=== PATIENT | female | born 1980 | race Caucasian/White ===

== ENCOUNTER 2019-10-17 16:30 | Emergency (ER) | payer SELFPAY ==
[2019-10-17] MEDS ORDERED: HYDROmorphone 1 MG/ML Syringe IM ONE (17:28)
--- NOTE | 2019-10-17 17:36 | EDM.PDOC ---
ED HPI GENERAL MEDICAL PROBLEM - General Chief Complaint: Genitourinary Problem Stated Complaint: VAGINAL PAIN Time Seen by Provider: 10/17/19 17:19 Source of Information: Reports: Patient, RN Notes Reviewed History Limitations: Reports: No Limitations - History of Present Illness INITIAL COMMENTS - FREE TEXT/NARRATIVE: Patient is a 39-year-old female who presents to the ED for the evaluation of a infected Bartholin cyst. Patient notes she has a history of this her last infected Bartholin cyst was 5 years ago. She is notes that this was on the left side however. She states that she started having some pain Wednesday morning, and it is worsened since then. She did have a scheduled appointment with Dr. Stanley tomorrow, but states that the pain is so severe where she cannot even sit much at all without intense pain, so she came to the ER for management. Patient denies any other sick-like symptoms, fever/chills, shortness of breath chest chest pain. She has been taking 2 tabs of Tylenol every 6-8 hours and this does not seem to be helping the pain much at all. Patient further denies any urinary issues, or any vaginal discharge. She does note a history of me dullary kidney disease, but states everything is been going well with that. Vaginal Pain Score (Numeric/FACES): 10 - Related Data Allergies Allergy/AdvReac Type Severity Reaction Status Date / Time Iodinated Contrast Media Allergy Hives Verified 09/12/13 12:21 [Iodinated Contrast Media - IV Dye] latex Allergy Itching Verified 07/26/13 19:24 Home Meds: Home Meds LORazepam [Ativan] 0.5 mg PO QID PRN 09/12/13 [History] Nitrofurantoin Monohyd/M-Cryst [Macrobid 100 mg Capsule] 100 mg PO BID #14 capsule 01/20/15 [Rx] Acetaminophen/oxyCODONE [Percocet 325-5 MG] 1 each PO Q6H PRN #12 tab 10/17/19 [Rx] Doxycycline [Vibramycin] 100 mg PO BID #14 tab 10/17/19 [Rx] Past Medical History Genitourinary History: Reports: Other (See Below) Other Genitourinary History: medullary sponge kidney Social & Family History - Family History Family Medical History: Noncontributory - Tobacco Use Smoking Status *Q: Current Every Day Smoker Years of Tobacco use: 24 Packs/Tins Daily: 1 ED ROS GENERAL - Review of Systems Review Of Systems: Comprehensive ROS is negative, except as noted in HPI. ED EXAM, RENAL/ - Physical Exam Exam: See Below Exam Limited By: No Limitations General Appearance: Alert, WD/WN, No Apparent Distress Respiratory/Chest: No Respiratory Distress, Lungs Clear, Normal Breath Sounds, No Accessory Muscle Use, Chest Non-Tender Cardiovascular: Normal Peripheral Pulses, Regular Rate, Rhythm, No Murmur GI/Abdominal: Normal Bowel Sounds, Soft, Non-Tender, No Distention, No Mass (Female) Exam: Vaginal Discharge (physiologic looking discharge coming from vaginal opening. Not malodorous), Vaginal Lesions (on right labia, roughly grape sized, and very tender to the touch.) Neurological: Alert, Oriented, Normal Cognition, No Motor/Sensory Deficits Psychiatric: Normal Affect, Normal Mood Skin Exam: Warm, Dry, Intact, Normal Color, No Rash ED PROCEDURES - Additional/Other Procedure(s) Procedure(s) (Free Text): Procedure performed by Dr. Chand and assisted by myself. Incision and drainage of right Bartholin cyst, this was a little larger than grape size on palpation. Area was anesthetized with 2 mils 1% lidocaine, the area was cleaned with ChloraPrep swab, and then incised and drained with 11 blade, patient had a small amount of pain with procedure, but tolerated it fairly well. Wound cultures were taken. There was a moderate amount of purulent fluid expressed from the wound. Gauze packing was placed to allow this to drain. Patient will be directed to follow-up with Dr. Stanley for further exam. Course - Vital Signs Last Recorded V/S: Last Vital Signs Temp 98.6 F 10/17/19 17:02 Pulse 84 10/17/19 17:02 Resp 16 10/17/19 17:02 BP 101/63 10/17/19 17:02 Pulse Ox 97 10/17/19 17:02 - Orders/Labs/Meds Orders: Active Orders 24 hr Category Date Time Status CULTURE ANAEROBIC + SMEAR [RM] Stat Lab 10/17/19 18:58 Ordered Meds: Medications Discontinued Medications Generic Name Dose Route Start Last Admin Trade Name Freq PRN Reason Stop Dose Admin Hydromorphone HCl 1 mg 10/17/19 17:28 10/17/19 17:50 Dilaudid IM 10/17/19 17:29 1 mg ONETIME ONE Administration Lidocaine HCl 10 ml 10/17/19 18:04 Xylocaine 1% INJECT 10/17/19 18:05 ONETIME ONE - Re-Assessments/Exams Free Text/Narrative Re-Assessment/Exam: 10/17/19 17:37 Patient presents to the ED for her vaginal lesion, it does appear to be an infected Bartholin cyst. I have asked Dr. Chand to help assist me with incision and drainage for this. We will likely send her home with outpatient antibiotics for outpatient management as well. Departure - Departure Time of Disposition: 19:03 Disposition: Home, Self-Care 01 Condition: Good Clinical Impression: Bartholin's gland abscess - Discharge Information *PRESCRIPTION DRUG MONITORING PROGRAM REVIEWED*: Yes *COPY OF PRESCRIPTION DRUG MONITORING REPORT IN PATIENT JORGE: No Prescriptions: Acetaminophen/oxyCODONE [Percocet 325-5 MG] 1 each PO Q6H PRN #12 tab PRN Reason: Pain Doxycycline [Vibramycin] 100 mg PO BID #14 tab Instructions: Bartholin's Cyst, [id number] Referrals: PCP,None [Primary Care Provider] - Forms: ED Department Discharge Additional Instructions: You were evaluated in the ED today for your infected Bartholin cyst. This area was incised and drained, there is a small amount of gauze packing left within the wound to allow it to drain, so please be careful when you are using the bathroom, as to not dislodge the gauze as much as possible. This should stay in a day or 2, is likely that Dr. Stanley can take this out at your appointment.. Wound cultures of this area were taken, you will be called and made notified if you should need a change in antibiotics or otherwise. The antibiotic you have been prescribed, does cover a wide spectrum of bacteria, so it should be appropriate for anything that is growing in this area. You were given a prescription for a strong pain medication, oxycodone/acetaminophen 5/325, please take 1 tab every 6 hours as needed for pain not relieved by Tylenol or ibuprofen alone. Please note this medication does contain Tylenol in it, so do not take more than 4000 mg in a 24-hour time span. These medications can be addictive, so please take as few as possible to achieve adequate pain control. These meds can also be quite constipating, recommend that you increase your oral fluid intake and take a stool softener like MiraLAX while taking these medications. Do not drive while taking this medication. You may also take 600 mg ibuprofen every 6 hours as needed for further inflammation relief. Do not exceed 3200 mg ibuprofen in a 24-hour time span. Please keep your appointment with Dr. Stanley for , for reevaluation of the area to make sure everything is healing as expected. Please return to the ER at any time if your symptoms change or worsen. Sepsis Event Note (ED) - Evaluation Sepsis Screening Result: No Definite Risk - Focused Exam Vital Signs: Vital Signs Temp Pulse Resp BP Pulse Ox 10/17/19 17:02 98.6 F 84 16 101/63 97 - My Orders Last 24 Hours: My Active Orders 10/17/19 18:58 CULTURE ANAEROBIC + SMEAR [RM] Stat - Assessment/Plan Last 24 Hours: My Active Orders 10/17/19 18:58 CULTURE ANAEROBIC + SMEAR [RM] Stat
[2019-10-17] MEDS ORDERED: Lidocaine 1% 10 ML MDV INJECT ONE (18:04)
[2019-10-17 19:51] VITALS: BP 99/73; PULSE 78
== END 2019-10-17 19:52 | disposition home or self-care (01) ==
LOC: JD.ED 16:30
DX: N75.1 Abscess of Bartholin's gland (principal); F17.210 Nicotine dependence, cigarettes, uncomplicated; Z91.041 Radiographic dye allergy status; Z91.040 Latex allergy status
CPT/HCPCS: 56420; 87075; 87205; 96372; 99283; J1170; J2001; 87076

== ENCOUNTER 2020-12-05 08:17 | Emergency (ER) | payer SELFPAY ==
[2020-12-05] MEDS ORDERED: HYDROmorphone 0.5 MG/0.5 ML Syringe IVPUSH ONE ×2 (09:34→12:59)
[2020-12-05] MEDS ORDERED: Ondansetron 4 MG/2 ML SDV IVPUSH ONE (09:34)
--- NOTE | 2020-12-05 09:37 | EDM.PDOC ---
ED HPI GENERAL MEDICAL PROBLEM - General Chief Complaint: Abdominal Pain Stated Complaint: ADOMINAL PAIN, DIZZY,POSS HERNIA Time Seen by Provider: 12/05/20 09:21 Source of Information: Reports: Patient History Limitations: Reports: No Limitations - History of Present Illness INITIAL COMMENTS - FREE TEXT/NARRATIVE: 40-year-old female presents to the ED for evaluation of diffuse right low back pain. She states it seems to start in her right flank area and radiate down to her right back and along the iliac crest to her right groin. She has a history of kidney stones and has known polycystic kidney disease particular affecting the right kidney. She has not had a kidney stone passage for 5 years or more. Pain does radiate down the posterior buttock and lateral posterior lateral aspect of her right leg but not below the knee. She appreciates that certain positions such as getting out of vehicle are painful. No known recent injuries or falls. She has mild urinary tract symptoms of dysuria but has not appreciated blood in her urine. Second complaint is pain and swelling intermittently in the midline of her upper abdomen.--First noted about 2 months ago. The hernia will sometimes protrude after eating. She is taken a picture with her phone which shows an obvious ventral hernia approximately 50% piece in size. 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 At present the hernia is not causing her any difficulty or pain. She denies fever or chills. Back pain is constant has been interfering with her sleep and ability to work out. Back pain has been present for the better part of 2 weeks. Onset: Unknown/Unsure (Low back pain persisting for 2 weeks and seems to be getting worse.) Duration: Week(s):, Constant, Getting Worse Location: Reports: Abdomen (And line upper abdominal pain which comes and goes and with associated bulge indicating ventral hernia.), Back (Diffuse right low back plain flank pain) Quality: Reports: Ache, Sharp (Pain in her lower back is occasional sharp and stabbing but different than kidney stone pain), Stabbing Severity: Moderate (8 out of 10) Improves with: Reports: Rest Worsens with: Reports: Movement (Patient with movement like getting out of the vehicle or getting up out of bed. Seems to be worse in the mornings and seems to slowly get better as the day goes on) Context: Reports: Other. Denies: Activity, Exercise, Lifting, Sick Contact, Trauma Associated Symptoms: Reports: Other (Does have some mild associated nasal congestion.). 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, NSAIDS (She takes NSAIDs sparingly due to known polycystic kidney disease.) Right Leg Pain Score (Numeric/FACES): 8 - Related Data Allergies Allergy/AdvReac Type Severity Reaction Status Date / Time Iodinated Contrast Media Allergy Hives Verified 12/05/20 09:10 [Iodinated Contrast Media - IV Dye] latex Allergy Itching Verified 12/05/20 09:10 Home Meds: Home Meds LORazepam [Ativan] 0.5 mg PO QID PRN 09/12/13 [History] Nitrofurantoin Monohyd/M-Cryst [Macrobid 100 mg Capsule] 100 mg PO BID #14 capsule 01/20/15 [Rx] Acetaminophen/oxyCODONE [Percocet 325-5 MG] 1 each PO Q6H PRN #12 tab 10/17/19 [Rx] Doxycycline [Vibramycin] 100 mg PO BID #14 tab 10/17/19 [Rx] Diclofenac Sodium [Voltaren] 50 mg PO TID #24 tab.ec 12/05/20 [Rx] Nitrofurantoin Monohyd/M-Cryst [Macrobid 100 mg Capsule] 100 mg PO BID #14 capsule 12/05/20 [Rx] oxyCODONE HCl/Acetaminophen [Percocet 5-325 mg Tablet] 1 each PO Q6H PRN #12 tablet 12/05/20 [Rx] predniSONE [Prednisone] 20 mg PO ASDIRECTED #18 tablet 12/05/20 [Rx] Past Medical History - Past Health History Medical/Surgical History: Denies Medical/Surgical History Genitourinary History: Reports: Other (See Below) Other Genitourinary History: medullary sponge kidney--is supposed to be followed by Dr. 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 : 5 Para: 5 - Infectious Disease History Infectious Disease History: Reports: Chicken Pox Social & Family History - Family History Family Medical History: No Pertinent Family History - Tobacco Use Tobacco Use Status *Q: Current Every Day Tobacco User Years of Tobacco use: 25 Packs/Tins Daily: 1 - Caffeine Use Caffeine Use: Reports: Coffee - Recreational Drug Use Recreational Drug Use: No - Living Situation & Occupation Living situation: Reports: Occupation: Employed ED ROS GENERAL - Review of Systems Review Of Systems: See Below Constitutional: Reports: Malaise, Fatigue (She believes due to lack of sleep.). Denies: Fever, Chills HEENT: Reports: Rhinitis, Sinus Problem Respiratory: Reports: No Symptoms Cardiovascular: Reports: No Symptoms Endocrine: Reports: Fatigue GI/Abdominal: Reports: Abdominal Pain (See history of present illness. Appears to have developed a ventral hernia over the last 2 months), Decreased Appetite. Denies: Distension, Flatus, Hematemesis, Hematochezia, Melena, Vomiting, Other : Reports: Frequency. Denies: Dysuria, Hematuria, Urgency Musculoskeletal: Reports: Back Pain (Right flank pain right low back pain rating along the crest to her groin at times. Otherwise it radiates down the posterior lateral aspect of her right thigh and leg to the knee but not below the knee.) Skin: Reports: No Symptoms Neurological: Reports: Paresthesia (Paresthesias posterior lateral aspect of right leg involving the buttock down to the knee posterior laterally without below), Difficulty Walking. Denies: Confusion, Dizziness, Headache Psychiatric: Reports: No Symptoms (Due to back pain in the morning) Hematologic/Lymphatic: Reports: No Symptoms Immunologic: Reports: No Symptoms ED EXAM, GI/ABD - Physical Exam Exam: See Below Exam Limited By: No Limitations General Appearance: Alert, WD/WN, Anxious, Mild Distress, Other (Temperature is 36.3 degrees. Heart rate 94 and sinus. Respiratory is 18 with O2 sats 100% room air. BP 123/81) Eyes: Bilateral: Normal Appearance ( no sclericterus or blepharal pallor.) Throat/Mouth: Normal Inspection, Normal Lips, Normal Oropharynx Head: Atraumatic, Normocephalic Neck: Normal Inspection, Supple, Non-Tender, Full Range of Motion. No: Carotid Bruit, Lymphadenopathy (L), Lymphadenopathy (R) Respiratory/Chest: No Respiratory Distress, Lungs Clear, Normal Breath Sounds, No Accessory Muscle Use Cardiovascular: Normal Peripheral Pulses, Regular Rate, Rhythm, No Edema, No Gallop, No Murmur, No Rub GI/Abdominal Exam: Normal Bowel Sounds, Soft, No Organomegaly, Hernia (Patient does have a ventral hernia 3 cm below the xiphisternum slightly left of the midline and is approximately $0.50 size . the area is mildly tender to palpation. It is only visible when she is standing. It is easily reducible), Other (Surgical scars around the umbilicus from laparoscopic cholecystectomy and tubal ligation) Back Exam: CVA Tenderness (L), CVA Tenderness (R) (Moderate), Decreased Range of Motion (Moderate), Muscle Spasm (Paraspinal muscle spasm over lumbar 3 to lumbar 5 right side.), Paraspinal Tenderness (Marked tenderness over the L3-4 and L4-L5 and L5-S1 facet joints right side), Other (Moderate tenderness superior two thirds of the right sacroiliac joint as compared to the left.) Extremities: Normal Inspection, Normal Range of Motion, Non-Tender, No Pedal Edema Neurological: Alert, Oriented, CN II-XII Intact, Normal Cognition Psychiatric: Normal Affect, Normal Mood Skin Exam: Warm, Dry, Intact, Normal Color, No Rash Course - Vital Signs Last Recorded V/S: Last Vital Signs Temp 36.3 C 12/05/20 09:06 Pulse 72 12/05/20 10:20 Resp 18 12/05/20 10:20 BP 106/73 12/05/20 10:20 Pulse Ox 100 12/05/20 10:20 - Orders/Labs/Meds Labs: Laboratory Tests 12/05/20 12/05/20 12/05/20 Range/Units 09:34 09:45 09:54 WBC 7.49 (3.98-10.04) K/mm3 RBC 4.66 (3.98-5.22) M/mm3 Hgb 14.3 (11.2-15.7) gm/dl Hct 43.5 (34.1-44.9) % MCV 93.3 D (79.4-94.8) fl MCH 30.7 (25.6-32.2) pg MCHC 32.9 (32.2-35.5) g/dl RDW Std Deviation 43.4 (36.4-46.3) fL Plt Count 299 (182-369) K/mm3 MPV 10.0 (9.4-12.3) fl Neut % (Auto) 55.6 (34.0-71.1) % Lymph % (Auto) 31.9 (19.3-51.7) % [place] % (Auto) 9.3 (4.7-12.5) % Eos % (Auto) 2.1 (0.7-5.8) Baso % (Auto) 0.8 (0.1-1.2) % Neut # (Auto) 4.16 (1.56-6.13) K/mm3 Lymph # (Auto) 2.39 (1.18-3.74) K/mm3 [place] # (Auto) 0.70 H (0.24-0.36) K/mm3 Eos # (Auto) 0.16 (0.04-0.36) K/mm3 Baso # (Auto) 0.06 (0.01-0.08) K/mm3 Sodium 141 (136-145) mEq/L Potassium 3.8 (3.5-5.1) mEq/L Chloride 105 (98-107) mEq/L Carbon Dioxide 28 (21-32) mEq/L Anion Gap 11.8 (5-15) BUN 9 (7-18) mg/dL Creatinine 0.6 (0.55-1.02) mg/dL Est Cr Clr Drug Dosing 107.27 mL/min Estimated GFR (MDRD) > 60 (>60) mL/min BUN/Creatinine Ratio 15.0 (14-18) Glucose 88 (70-99) mg/dL Calcium 8.4 L (8.5-10.1) mg/dL Total Bilirubin 0.4 (0.2-1.0) mg/dL AST 12 L (15-37) U/L ALT 21 (14-59) U/L Alkaline Phosphatase 58 (46-116) U/L C-Reactive Protein <0.2 (<1.0) mg/dL Total Protein 6.8 (6.4-8.2) g/dl Albumin 3.6 (3.4-5.0) g/dl Globulin 3.2 gm/dL Albumin/Globulin Ratio 1.1 (1-2) Lipase 94 (73-393) U/L Urine Color Yellow (Yellow) Urine Appearance Clear (Clear) Urine pH 7.0 (5.0-8.0) Ur Specific [place] 1.015 (1.005-1.030) Urine Protein Negative (Negative) Urine Glucose (UA) Negative (Negative) Urine Ketones Negative (Negative) Urine Occult Blood Negative (Negative) Urine Nitrite Negative (Negative) Urine Bilirubin Negative (Negative) Urine Urobilinogen 0.2 (0.2-1.0) Ur Leukocyte Esterase Trace H (Negative) Urine RBC 0-5 (0-5) /hpf Urine WBC 0-5 (0-5) /hpf Ur Epithelial Cells 0-5 (0-5) /hpf Urine Bacteria Moderate H (FEW) /hpf Urine Mucus Not seen (FEW) /hpf Meds: Medications Discontinued Medications Generic Name Dose Route Start Last Admin Trade Name Berny PRN Reason Stop Dose Admin Hydromorphone HCl 0.5 mg 12/05/20 09:34 12/05/20 10:37 Hydromorphone 0.5 Mg/0.5 Ml Syringe IVPUSH 12/05/20 09:35 0.5 mg ONETIME ONE Administration Hydromorphone HCl 0.5 mg 12/05/20 12:59 12/05/20 13:23 Hydromorphone 0.5 Mg/0.5 Ml Syringe IVPUSH 12/05/20 13:00 0.5 mg ONETIME ONE Administration Dextrose/Sodium Chloride 1,000 mls @ 250 mls/hr 12/05/20 09:45 12/05/20 10:39 Dextrose 5%-Normal Saline IV 250 mls/hr ASDIRECTED LOLA Administration Methylprednisolone Sodium Succinate 125 mg 12/05/20 13:00 12/05/20 13:23 Methylprednisolone Sodium Succinate 125 Mg/2 Ml Sdv IVPUSH 12/05/20 13:01 125 mg ONETIME ONE Administration Ondansetron HCl 4 mg 12/05/20 09:34 12/05/20 10:36 Ondansetron 4 Mg/2 Ml Sdv IVPUSH 12/05/20 09:35 4 mg ONETIME ONE Administration - Radiology Interpretation Free Text/Narrative:: 40-year-old female presents to the ED complaining of 2 problems. She is appreciated a bulge which is somewhat tender in the midline of her upper abdomen on an intermittent basis over the last 2 months. She has taken a picture of it with her cell phone and clinically she has a ventral hernia but the size of a $0.50 piece. This is only evident when she is standing. It was not evident upon lying down. Of note she has had 5 pregnancies. This would have likely c aused some degree of diastases recti. Major problem today is diffuse right flank and low back pain rating down her posterior lateral right thigh and along the iliac crest to her right groin. She has a history of probably cystic kidney disease or medullary sponge kidney and has had kidney stones in the past but this pain feels different. It is also been more constant made worse by certain movements for the last 2 weeks. No known falls or injuries. She is however working out at the gym as of late doing much more exercise than she has in the past. She has tenderness over palpation of both kidneys or costovertebral angles. She also has diffuse tenderness over L3-L5 and her right sacroiliac joint on initial exam. Plan she will be given Zofran 4 mg IV with Dilaudid 0.5 mg IV for acute pain relief. Plan will be to CT her abdomen and pelvis without contrast so that I can see both kidneys and look for any occult cause of pelvic pain on the right side. - Re-Assessments/Exams Free Text/Narrative Re-Assessment/Exam: 12/05/20 11:04 CT of the abdomen and pelvis has been completed without any contrast since the patient has an allergy to IV contrast. Small calcification is seen inferiorly within the left kidney which appears to be parenchymal and measures 1.5 to 2 mm. No other abnormal calcifications are seen within the kidneys. No ureteral dilatation is seen. No abnormal calcifications are seen along the course of the ureters. No bladder calculi are identified. Visualized lung bases show nothing acute. Liver contains no focal parenchymal abnormality. Spleen size is normal. Adrenal glands show no nodules. Pancreas shows no discrete abnormality. Gallbladder contains no calcified gallstones. Abdominal aorta shows no aneurysm. No retroperitoneal adenopathy or mesenteric abnormalities are seen. Surgical clips are seen within the right lower abdomen. No pelvic mass or adenopathy is appreciated. Appendix is not visualized. No free fluid or inflammatory changes are appreciated. Bone window settings were obtained which showed degenerative change within the lower apophyseal joints particular on the right side at the L5-S1 level. No acute osseous abnormalities are otherwise appreciated. 12/05/20 11:07 White count is normal at 7.49. The auto differential shows 55.6% neutrophils. Hemoglobin is 14.3 with hematocrit of 43.5. Platelet count is 299,000. Sodium is 141 with potassium of 3.8. Chloride 105 with a bicarb of 28. Anion gap is 11.8. BUN is 9 with a creatinine of 0.6 and a GFR greater than 60. Glucose is 88. Calcium is slightly low at 8.4. Total bilirubin 0.4. Liver function is otherwise normal. C-reactive protein is less than 0.2. Total protein 6.8 with an albumin fraction of 3.6. Lipase is 94. Urine contains a trace of leukocyte esterase. Micro is pending 12/05/20 12:36 Urinalysis shows trace of leukocyte esterase with moderate bacteria. The smear however does not reveal any white cells or red cells. Discussed the findings with the patient. On reexamination pain is definitely coming from her back with marked tenderness on compression of L3-L4 L4-L5 and L5-S1 facet joint on the right side. There is also associated pain throughout the right sacroiliac joint as compared to the left as well. I am going to place her on prednisone 20 mg twice daily for 6 days and then once in the morning only for another 6 days. This will be in combination with Voltaren 50 mg twice daily for 7 days. Departure - Departure Time of Disposition: 13:30 Disposition: Home, Self-Care 01 Condition: Fair Clinical Impression: Facet arthritis, degenerative, lumbar spine, Sacroiliitis, Polycystic kidney disease, Ventral hernia without obstruction or gangrene - Discharge Information *PRESCRIPTION DRUG MONITORING PROGRAM REVIEWED*: Not Applicable *COPY OF PRESCRIPTION DRUG MONITORING REPORT IN PATIENT JORGE: Not Applicable Prescriptions: Nitrofurantoin Monohyd/M-Cryst [Macrobid 100 mg Capsule] 100 mg PO BID #14 capsule oxyCODONE HCl/Acetaminophen [Percocet 5-325 mg Tablet] 1 each PO Q6H PRN #12 tablet PRN Reason: pain relief. predniSONE [Prednisone] 20 mg PO ASDIRECTED #18 tablet Diclofenac Sodium [Voltaren] 50 mg PO TID #24 tab.ec Instructions: Hernia, Adult, [id number] Referrals: PCP,None [Primary Care Provider] - Forms: ED Department Discharge Additional Instructions: Evaluation in the emergency room today in regards to 2 problems. One is identification of a ventral or abdominal wall hernia in the upper abdomen most notable on your phone and also palpable clinically. It is just to the left of the midline upper abdomen. This is called a ventral hernia due to separation of the rectus abdominis muscles and is fairly common. As long as the hernia or protrusion through the abdominal wall goes back in with firm palpation and does not hurt it is of no consequence. At present surgery to repair this would be cosmetic and is potentially problematic if the hernia reoccurs which seems to occur upwards of 50% of the time. Therefore if it is not bothering you I would advise against having it surgically repaired at this time. Diffuse low back pain was identified by CT scan not to be due to any kidney stone. You do have polycystic kidney disease most noticeable on the right kidney but it is very mild. There is one small stone 1.5 mm in the lower pole of the left kidney. CT did reveal degenerative arthritic change throughout the lumbar spine particularly at the lowest portion of the lumbar spine L5-S1 on the right side. Exam also correlates with pain in this area to palpation as well as throughout the right sacroiliac joint. You were treated with intravenous pain medication x2 while in the ED. Treatment at home is to be prednisone 20 mg twice daily morning and suppertime usually with a meal. This should be done for 6 days and then take only 1 tablet every morning with food for another 6 days to relieve pain and inflammation in both joints. Voltaren is 50 mg 3 times daily for the next 8 days to relieve pain and inflammation as well. Pain medication is Percocet tabs 5/325 mg strength 1 tablet every 4-6 hours necessary for pain relief primarily at bedtime so that you can sleep better. This medication can make you lightheaded and dizzy and you should not operate a motor vehicle within 6 hours of taking a tablet. They are also prone to cause constipation and there is increased stool throughout your colon on the CT scan. Per your directive I have sent the CT scan of your abdomen and pelvis to [facility] in [place] through the PACS system and it could be over read by Dr. Martinez go your nephro logist at any time. You will need to take nitrofurantoin 100 mg twice daily for 7 days for urinary tract infection which is fairly mild at this time. Continue exercise program particular to strengthen low back muscles which hopefully will help to alleviate pain in your lower back over time. Sepsis Event Note (ED) - Evaluation Sepsis Screening Result: No Definite Risk - Focused Exam Vital Signs: Vital Signs Temp Pulse Resp BP Pulse Ox 12/05/20 10:20 72 18 106/73 100 12/05/20 09:06 36.3 C 94 18 123/81 100
[2020-12-05] MEDS ORDERED: Dextrose 5%-0.9% NaCl 1,000 ML IV SCH (09:45)
--- NOTE | 2020-12-05 10:28 | CT ---
CT abdomen and pelvis Technique: Multiple axial sections were obtained from above the dome of the diaphragm inferiorly through the pubic symphysis. Intravenous and oral contrast were not utilized. Study has been performed as a ureteral stone protocol. Reconstructed coronal and sagittal images were also obtained. Comparison: Prior CT abdomen and pelvis study of 01/20/15. Findings: Small calcification is seen inferiorly within the left kidney which appears to be parenchymal and measures 1.5-2 mm. No other abnormal calcifications are seen within the kidneys. No ureteral dilatation is seen. No abnormal calcifications are seen along the course of the ureters. No bladder calculi are seen. Visualized lung bases shows nothing acute. Liver contains no focal parenchymal abnormality. Spleen size is normal. Adrenal glands show no nodule. Pancreas shows no discrete abnormality. Gallbladder contains no calcified gallstones. Abdominal aorta shows no aneurysm. No retroperitoneal adenopathy or mesenteric abnormalities are seen. Surgical clips are seen within the right lower abdomen. No pelvic mass or adenopathy is appreciated. Appendix is not visualized. No free fluid or inflammatory change is appreciated. Bone window settings were obtained which show degenerative change within the lower apophyseal joints particularly on the right side at L5-S1. No acute osseous abnormality is appreciated. Impression: 1. Small parenchymal calcification within the lower left kidney which is an interval change from prior exam. No other abnormal calcifications are seen within the kidneys. No ureteral dilatation or ureteral stone is seen. 2. Minimal degenerative change within the lower lumbar spine. 3. Surgical clips within the right lower abdomen. 4. No acute abnormality is appreciated on CT study of the abdomen and pelvis (performed without contrast). Diagnostic code #2
[2020-12-05 10:40] VITALS: BP 106/73; PULSE 72
[2020-12-05] MEDS ORDERED: methylPREDNISolone Sodium Succinate 125 MG/2 ML SDV IVPUSH ONE (13:00)
== END 2020-12-05 13:35 | disposition home or self-care (01) ==
LOC: JD.ED 08:17
DX: K43.9 Ventral hernia without obstruction or gangrene (principal); M51.36 Other intervertebral disc degeneration, lumbar region; M46.1 Sacroiliitis, not elsewhere classified; Q61.3 Polycystic kidney, unspecified; Z91.040 Latex allergy status; Z91.041 Radiographic dye allergy status; Z72.0 Tobacco use
CPT/HCPCS: 36415; 74176; 80053; 81001; 83690; 85025; 86140; 96374; 96375; 96376; 99284; J1170; J2405; J2930; J7042

== ENCOUNTER 2021-01-17 10:14 | Emergency (ER) | payer SELFPAY | END 2021-01-17 10:31 | LOC: JD.ED 10:14 | DX: Z53.21 Procedure and treatment not carried out due to patient leaving prior to being seen by health care provider (principal) ==

== ENCOUNTER 2021-08-22 06:09 | Emergency (ER) | payer SELFPAY ==
[2021-08-22 06:21] VITALS: BP 137/81; PULSE 116
[2021-08-22] MEDS ORDERED: Lidocaine 1% with EPINEPHrine 1:100,000 20 ML MDV INJECT ONE (06:32)
== END 2021-08-22 07:20 | disposition home or self-care (01) ==
LOC: JD.ED 06:09
DX: N75.1 Abscess of Bartholin's gland (principal); Z91.040 Latex allergy status; Z91.041 Radiographic dye allergy status
CPT/HCPCS: 10060; 56420; 87070; 87075; 87205; 99283; 99283-25

== ENCOUNTER 2021-08-25 13:48 | Emergency (ER) | payer SELFPAY ==
[2021-08-25 14:10] VITALS: BP 127/75; PULSE 60
== END 2021-08-25 15:31 | disposition home or self-care (01) ==
LOC: JD.ED 13:48
DX: N75.1 Abscess of Bartholin's gland (principal); Z91.040 Latex allergy status; Z91.041 Radiographic dye allergy status
CPT/HCPCS: 99282